=== PATIENT | female | born 1985 | race Caucasian/White ===

== ENCOUNTER 2021-10-19 08:07 | Outpatient (REF) | payer OTHER, SELFPAY ==
[2021-10-19 11:54] LABS: Alanine Aminotransferase 88 U/L (0-31); Albumin Level 4.3 g/dL (3.5-5.0); Alkaline Phosphatase 74 U/L (39-117); Anion Gap 10 (12-20); Aspartate Amino Transferase 43 U/L (5-31); Bilirubin Total 0.5 mg/dL (0.0-1.0); Blood Urea Nitrogen 10 mg/dL (9-16); Calcium 9.4 mg/dL (8.4-10.2); Carbon Dioxide 29 mmol/L (22-29); Chloride 101 mmol/L (96-108); Cholesterol 209 mg/dL; Estimated Glomerular Filt Rate > 60; Glucose Fasting 110 mg/dL (60-99); HDL Cholesterol 53 mg/dL; LDL Cholesterol Calculated 133 mg/dl; Potassium 4.2 mmol/L (3.3-5.1); Sodium 136 mmol/L (135-145); Total Protein 6.9 g/dL (6.5-8.0); Triglycerides 115 mg/dL
[2021-10-19 12:09] LABS: TSH reflex Free T4 2.79 uIU/mL (0.32-4.0)
== END 2021-10-19 08:08 | disposition home or self-care (01) ==
LOC: HO.WFDLDS 08:07
PROVIDERS: Visit Provider Family Medicine
DX: Z00.00 Encounter for general adult medical examination without abnormal findings (principal)
CPT/HCPCS: 36415; 80053; 80061; 84443

== ENCOUNTER 2021-11-16 07:29 | Outpatient (REF) | payer OTHER, SELFPAY ==
[2021-11-16 10:50] LABS: Estimated Average Glucose 97 mg/dL
[2021-11-16 11:02] LABS: Alanine Aminotransferase 57 U/L (0-31); Albumin Level 4.2 g/dL (3.5-5.0); Alkaline Phosphatase 72 U/L (39-117); Anion Gap 12 (12-20); Aspartate Amino Transferase 31 U/L (5-31); Bilirubin Total 0.9 mg/dL (0.0-1.0); Blood Urea Nitrogen 14 mg/dL (9-16); Calcium 9.1 mg/dL (8.4-10.2); Carbon Dioxide 27 mmol/L (22-29); Chloride 102 mmol/L (96-108); Estimated Glomerular Filt Rate > 60; Glucose Random 102 mg/dL (60-115); Potassium 4.1 mmol/L (3.3-5.1); Sodium 137 mmol/L (135-145); Total Protein 6.7 g/dL (6.5-8.0)
== END 2021-11-16 07:30 | disposition home or self-care (01) ==
LOC: HO.WFDLDS 07:29
PROVIDERS: Visit Provider Family Medicine
DX: R74.8 Abnormal levels of other serum enzymes (principal); R73.01 Impaired fasting glucose
CPT/HCPCS: 36415; 80053; 83036

== ENCOUNTER 2024-02-06 10:19 | Outpatient (AMB) | payer OTHER, SELFPAY ==
[2024-02-06 10:38] VITALS: BP 140/73; PULSE 79; RESP 13; TEMP 36.4; O2SAT 100; BMI 34.1
--- NOTE | 2024-02-06 10:38 | A.OFFPC_ITS ---
Vital Signs 02/06/24 10:38 02/06/24 11:09 Height 5 ft 5 in Weight 205 lb BMI 34.1 BP 140/73 H 124/78 Blood Pressure Location Lt brachial Lt brachial Position Sitting Sitting Respiration 13 Pulse 79 Pulse Source Pulse Oximeter Temp 97.5 F Temp Source Temporal Artery Scan Pulse Oximetry (%) 100 Oxygen Delivery Method Room Air Intake Visit Reasons: ELEV BP Intake Note: Patient reports she is here for evaluation of hypertension post [id number] ago. Patient reports OB referred her to her PCP. Priot to having a baby, patient reports her blood pressure was not a concern. Patient reports she is having some trouble with hormone regulation post and she is currently taking for anxiety. Patient reports she is taking progesterone control. Budget Coordinator Required: No Accompanied by: Self / Same As Patient Allergies No Known Allergies Allergy (Verified 02/06/24 10:57) crystal light Allergy (Mild, Uncoded 02/06/24 10:42) Stomach Upset Medication List - Last Reconciled 02/06/24 by NORRIS Perry- aspirin (Adult Low Dose Aspirin) 81 mg PO DAILY norethindrone (contraceptive) 0.35 mg PO DAILY sertraline 25 mg PO DAILY Tobacco use date assessed: 02/06/24 Dental Screening Dental Screen Date: 02/06/24 Did you have a dental visit in the last 12 months?: Yes Did you have a dental problem in the last 6 months where you did not have access to dental care?: No Was dental information given to patient?: Patient has dentist HPI HPI Comments History of Present Illness Details 38-year-old female with IFG, elevated li artis enzymes, gestational htn (2023), gestation diabetes, anxiety Health Maintenance: Pap 01/2024 [facility] 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 Reports failed induction. During post check last week, SBP >150 Monitors BP at home. Log reviewed from 09/2023- January 2024. SBP was only recorded twice in the 140's otherwise well below 130. DBP normal. She wonders if she has white coat htn. On minipill. At end of first bleed . sertraline was added at 2 week PP. Cont to have anxiety sx. Trouble sleeping. Denies depression, SI/HI. Reports + albrecht w/ baby Not breast feeding. Has never been on blood pressure meds in the past. Will be going for glucose test soon d/t gestational DM. Denies chest pain. Had swelling in lower ext after c section. This quickly resolved. Denies vision changes, headaches. [facility] Medical History (Updated 02/06/24 @ 11:39 by Gilma Lugo, HEAD START TEACHER-) delivery delivered Right foot pain Mid back pain Plantar fasciitis Uterine fibroid Social History (Updated 02/06/24 @ 10:48 by Michelle Brown [facility]) Household Members: Spouse and Children Housing: House Are you a primary critical care educator to a significant other at home: No Do you presently have visiting nurse or other home services: No 75 years or older and lives alone: No Alcohol intake: current Patient Tobacco Use Status: Former Tobacco user e-Cigarette/Vaping Use: Never Used service: No Current occupational status: employed Current occupation: M[employer] Current occupational exposures/hazards: No Sexual orientation: Straight/Heterosexual Gender identity: Female Cognitive needs: No Hearing needs: No Vision needs: No Questionnaire PHQ-9 Over the last 2 weeks, how often have you been bothered by any of the following problems? 1. Little interest or pleasure in doing things: not at all 2. Feeling down, depressed, or hopeless: not at all 3. Trouble falling or staying asleep, or sleeping too much: not at all 4. Feeling tired or having little energy: several days () 5. Poor appetite or overeating: not at all 6. Feeling bad about yourself - or that you are a failure or have let yourself or your family down: not at all 7. Trouble concentrating on things, such as reading the newspaper or watching television: not at all 8. Moving or speaking so slowly that other people could have noticed. Or the opposite - being so fidgety or restless that you have been moving around a lot more than usual: not at all 9. Thoughts that you would be better off or of hurting yourself in some way: not at all Total score: 1 Depression Screening Interpretation: Negative Depression Screening Done: Yes 30228 - PHQ-9 Billing: Yes Source: Developed by Drs. Juan Carmoan, Hailee Dorado, Bassam Moya and colleagues, with an educational tiffanie from [employer]. Thrive Questionnaire Date Thrive assessed: 02/06/24 I am a: Patient What is your living situation today?: I have a steady place to live Within the past 12 months, did the food you bought not last and you didn't have the money to get more?: Never true Within the past 12 months, did you worry whether your food would run out before you got money to buy more?: Never true Do you have trouble paying for medicines?: No Do you have trouble getting transportation to medical appointments?: No Do you have trouble paying your heating and electricity bill?: No Do you have trouble taking care of your child, family member or friend?: No Do you have trouble with day-to-day activities such as bathing, preparing meals, shopping, managing finances, etc.?: No Are you currently unemployed and looking for a job?: No Are you interested in more education?: No Please select the resources that you would like help with: None Currently or been in a relationship where the following occur: no concerns reported THRIVE Score: 0 AUDIT C Alcohol Use Questionnaire (AUDIT-C) 1. How often do you have a drink containing alcohol?: Never 3. How often do you have six or more drinks on one occasion?: Never Total Score: 0 Score Reviewed/Action Taken: Yes ASTER-7 AMB Questionnaire ASTER-7 Date ASTER - 7 assessed: 02/06/24 Feeling nervous, anxious, or on edge: 3 = Nearly every day Not being able to stop or control worryin = Several days Worrying too much about different things: 1 = Several days Trouble relaxin = More than half the days Being so restless that it is hard to sit still: 0 = Not at all Becoming easily annoyed or irritable: 1 = Several days Feeling afraid as if something awful might happen: 0 = Not at all Total ASTER-7 score (0-4 normal; 5-9 mild; 10-14 moderate; 15-21 severe): 8 Source: Developed by Drs. Juan Carmona, Hailee Dorado, Bassam Moya and colleagues, with an educational tiffanie from [employer]. ASTER-7 Assessment Billing ASTER-7 Assessment Tool: ASTER-7 Assessment 89465 Review of Systems Const All systems reviewed & are unremarkable except as noted in HPI and below Physical exam (Primary Care) Vital Signs: Last Vital Signs Temp 97.5 F 02/06/24 10:38 Pulse 79 02/06/24 10:38 Resp 13 02/06/24 10:38 BP 140/73 H 02/06/24 10:38 Pulse Ox 100 02/06/24 10:38 Oxygen Delivery Method Room Air 02/06/24 10:38 BMI result Body Mass Index 34.1 BMI Assessment/Plan discussion: High BMI High, discussed plan: lifestyle Tobacco/Smoking Status: Tobacco use Status Tobacco use date assessed 02/06/24 02/06/24 10:50 Patient Tobacco Use Status Former Tobacco user 02/06/24 10:50 e-Cigarette/Vaping Use Never Used 02/06/24 10:50 PHQ-9: PHQ-9 Score PHQ-9: Total score 1 02/06/24 10:50 Depression Screening Interpretation: Negative Thrive Assessment: Date of Thrive Assessment Date Thrive assessed 02/06/24 02/06/24 10:50 Currently or been in a relationship where the following occur: no concerns reported Const Other: awake alert MMM RRR LS CTAB No edema BLE Mood and affect appropriate Assessment and Plan Assessment & Plan (1) Elevated liver enzymes: Comment: history of. 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 AST/ALT 12/2023 WNL Code(s): R74.8 - Abnormal levels of other serum enzymes (2) Elevated fasting glucose: Comment: with + gestation DM Check HgA1c Code(s): R73.01 - Impaired fasting glucose (3) Elevated blood pressure reading without diagnosis of hypertension: Comment: home log at goal, repeat BP at goal < 130/80 Monitor once per week No indication for meds at this time Code(s): R03.0 - Elevated blood-pressure reading, without diagnosis of hypertension (4) anxiety: Comment: on sertraline 25mg, cont to have sx Plan increase to 50mg QD, Start Prn hydroxyzine 25 mg po TID PRN Code(s): O99.345 - Other mental disorders complicating the puerperium; F41.8 - Other specified anxiety disorders Plan: This note is constructed using voice recognition software. While every effort has been made to ensure accuracy in break out worker, still errors may have been included Sometimes, these errors may affect the content or meaning of the given sentence . Total time spent caring for the patient today was 60 minutes. This includes time spent before the visit reviewing the chart, time spent during the visit, and time spent after the visit on documentation Orders: Orders Comprehensive Met. Panel Today R73.01 - Impaired fasting glucose, R74.8 - Abnormal levels of other serum enzymes LDL Cholesterol Direct Today R73.01 - Impaired fasting glucose, R74.8 - Abnormal levels of other serum enzymes Microalbumin, Random (w Creat) Today R73.01 - Impaired fasting glucose, R74.8 - Abnormal levels of other serum enzymes Vitamin D 1,25 dihydroxy Today R73.01 - Impaired fasting glucose, R74.8 - Abnormal levels of other serum enzymes Hemoglobin A1c Today R73.01 - Impaired fasting glucose, R74.8 - Abnormal levels of other serum enzymes TSH reflex Free T4 Today R73.01 - Impaired fasting glucose, R74.8 - Abnormal levels of other serum enzymes Medications: New sertraline 50 mg PO DAILY 90 tabs 0RF hydroxyzine HCl 25 mg PO TID PRN 30 tabs 0RF anxiety Patient Instructions: monitor BP once per week and log; Goal SBP <140 Take new meds as directed Ok to stop asa at 6 weeks PP RTO IN 6 WEEKS TO F/U ON MOOD AND HTN Coding Level of Care Code Est Pt Level 5 (91177) Diagnoses Elevated liver enzymes R74.8 Elevated fasting glucose R73.01 Elevated blood pressure reading without diagnosis of hypertension R03.0 anxiety O99.345; F41.8 Additional Codes ASTER-7 Assessment Billing - ASTER-7 Assessment Tool: ASTER-7 Assessment 84968 ([id number])
[2024-02-06 11:09] VITALS: BP 124/78
== END 2024-02-06 11:40 | disposition home or self-care (01) ==
PROVIDERS: PCP Family Medicine; Visit Provider Nurse Practitioner Family
DX: R74.8 Abnormal levels of other serum enzymes (principal); R73.01 Impaired fasting glucose; R03.0 Elevated blood-pressure reading, without diagnosis of hypertension; F41.8 Other specified anxiety disorders; O99.345 Other mental disorders complicating the puerperium
CPT/HCPCS: 99215; 99417

== ENCOUNTER 2024-02-09 08:44 | Outpatient (REF) | payer OTHER, SELFPAY ==
[2024-02-09 12:25] LABS: Estimated Average Glucose 103 mg/dL; Hemoglobin A1c % 5.2 % (<6.0)
[2024-02-09 12:54] LABS: Creatinine Urine 68.57 mg/dL; Microalbumin Urine < 5.0 mg/L
[2024-02-09 13:14] LABS: Alanine Aminotransferase 17 U/L (0-31); Albumin Level 4.1 g/dL (3.5-5.0); Alkaline Phosphatase 78 U/L (39-117); Anion Gap 11 (12-20); Aspartate Amino Transferase 18 U/L (5-31); Bilirubin Total 0.5 mg/dL (0.0-1.0); Blood Urea Nitrogen 10 mg/dL (9-16); Calcium 9.3 mg/dL (8.4-10.2); Carbon Dioxide 28 mmol/L (22-29); Chloride 102 mmol/L (96-108); Estimated Glomerular Filt Rate > 60; Glucose Random 91 mg/dL (60-115); Potassium 3.9 mmol/L (3.3-5.1); Sodium 137 mmol/L (135-145); Total Protein 6.6 g/dL (6.5-8.0)
[2024-02-09 13:34] LABS: TSH reflex Free T4 3.02 uIU/mL (0.32-4.0)
[2024-02-10 19:10] LABS: LDL Cholesterol Direct 133 mg/dL (<100)
[2024-02-20 16:33] LABS: VITAMIN D (1,25 OH) D3 17 pg/mL; Vit D (1,25-Dihydroxy) Total 17 pg/mL (18-72); Vitamin D (1,25 OH) D2 <8 pg/mL
== END 2024-02-09 08:45 | disposition home or self-care (01) ==
LOC: HO.WFDLDS 08:44
PROVIDERS: Visit Provider Nurse Practitioner Family
DX: R73.01 Impaired fasting glucose (principal); R74.8 Abnormal levels of other serum enzymes
CPT/HCPCS: 36415; 80053; 82043; 82570; 82652; 83036; 83721; 84443

== ENCOUNTER → 2024-07-07 10:13 | Outpatient (BNVA) | payer OTHER, SELFPAY | PROVIDERS: PCP Family Medicine; Visit Provider Family Medicine ==

== ENCOUNTER → 2024-07-07 10:13 | Outpatient (AMB) | payer OTHER, SELFPAY ==
--- NOTE | 2024-07-07 10:09 | A.OFFPC_ITS ---
Intake Visit Reasons: follow up labs Intake Note: lab review Allergies No Known Allergies Allergy (Verified 07/07/24 10:15) crystal light Allergy (Mild, Uncoded 02/06/24 10:42) Stomach Upset Tobacco use date assessed: 02/06/24 Dental Screening Dental Screen Date: 02/06/24 HPI follow up labs HPI Details 39 y/o [facility] Labs drawn 02/09/24. Reviewed labs with pt. LDL 133. Had concerns about elevated fasting glucose and gestational DM - A1c 5.2%. Has checked her blood pressure at home and notes it typically sits in the 130s systolic range. Has complaints of post anxiety. Had been prescribed sertraline 50mg, hydroxyzine 25mg. She notes she feels her medication regimen has not been working for her. Hdyroxyzine has been causing sleepiness which she states is not desirable due to the baby. [facility] Medical History (Updated 07/07/24 @ 11:02 by Ken Jensen MD) Right foot pain Mid back pain Plantar fasciitis Uterine fibroid Surgical History (Updated 02/06/24 @ 12:43 by Michelle Brown CMA) Status post delivery Social History (Updated 02/06/24 @ 10:48 by Michelle Brown CMA) Household Members: Spouse and Children Housing: House Are you a primary post acute care nurse to a significant other at home: No Do you presently have visiting nurse or other home services: No 75 years or older and lives alone: No Alcohol intake: current Patient Tobacco Use Status: Former Tobacco user e-Cigarette/Vaping Use: Never Used service: No Current occupational status: employed Current occupation: M[employer] Current occupational exposures/hazards: No Sexual orientation: Straight/Heterosexual Gender identity: Female Cognitive needs: No Hearing needs: No Vision needs: No Questionnaire Thrive Questionnaire Date Thrive assessed: 02/06/24 ASTER-7 AMB Questionnaire ASTER-7 Date ASTER - 7 assessed: 02/06/24 Source: Developed by Drs. Juan Carmona, Hailee Dorado, Bassam Moya and colleagues, with an educational tiffanie from [employer]. Review of Systems Const Denies chills, Denies fatigue, Denies fever(s), Denies headache(s) and Denies weakness ENT Denies dizziness and Denies headache(s) Card Denies dyspnea Resp Denies cough, Denies dyspnea, Denies wheezing and Denies other (shortness of breath) Musc Denies numbness and Denies tingling Neuro Denies dizziness, Denies headache(s), Denies numbness, Denies tingling and Denies weakness Psych Reports anxiety and Denies depression Endo Denies fatigue Aller/Immun Denies wheezing Physical exam (Primary Care) Tobacco/Smoking Status: Tobacco use Status Tobacco use date assessed 02/06/24 07/07/24 10:10 Patient Tobacco Use Status Former Tobacco user 07/07/24 10:10 e-Cigarette/Vaping Use Never Used 07/07/24 10:10 Thrive Assessment: Date of Thrive Assessment Date Thrive assessed 02/06/24 07/07/24 10:10 Telehealth Telehealth Telehealth Platform: Telephone Location of provider rendering services: practice address Location of patient: address on file Patient Identification confirmed using: Name, : Yes Telehealth method: voice only Patient verbally consented to treatment: Yes Patient verbally consented to billing insurance company: Yes Patient informed of any privacy concerns related to visit: Yes Minutes spent on Phone/Video with Pt.: 21 Assessment and Plan Assessment & Plan (1) Elevated fasting glucose: Comment: with + gestation DM Check HgA1c Code(s): R73.01 - Impaired fasting glucose Plan: Gestational?diabetes?and?patient?has?had?elevated?fasting?blood?sugars?in?the?[place] st. Will?recheck?fasting?blood?sugar?and?an?A1c Advised?a?diet?low?in?sugars?and?starches,?advised?exercise?and?weight?loss (2) Elevated blood pressure reading without diagnosis of hypertension: Code(s): R03.0 - Elevated blood-pressure reading, without diagnosis of hypertension Plan: Patient?checks?her?blood?pressures?at?home?and?they?are?in?prehypertensive?range Advised?exercise,?weight?loss?and?diet?low?in?salt/sodium Patient?has?significant?anxiety?and?this?may?also?be?raising?her ?blood?pressure.??Will?try?some?clonidine?as?she?did?not?notice?any?improvements ?with?sertraline?or?hydroxyzine. See?below (3) Elevated LDL cholesterol level: Code(s): E78.00 - Pure hypercholesterolemia, unspecified Plan: Check?labs (4) Vitamin D deficiency: Comment: 02/2024 start vitamin d3 2000 IU QD Code(s): E55.9 - Vitamin D deficiency, unspecified Plan: Check?labs (5) anxiety: Code(s): O99.345 - Other mental disorders complicating the puerperium; F41.8 - Other specified anxiety disorders Plan: As?above,?patient?notes?increased?stress?after?delivery?of?her?baby She?has?higher?anxiety?and?has?tri ed?sertraline?which?did?not?help?much?and?hydroxyzine?which?caused?sleepiness?th at?was?not?desirable?considering?she?has?take?care?of?her?baby. She?is?not? Will?try?clonidine?which?may?he lp?with?anxiety/stress?and?may?also?help?with?her?blood?pressure. (6) Wrist pain: Code(s): M25.539 - Pain in unspecified wrist Plan: Patient?has?complaint?of?wrist?pain.??She?is?wearing?a?brace Advised?she?can?use?the?brace?when?doing?heavy?manual?dexterity?or?lifting?tasks . Otherwise?should?take?this?off. Ice/heat?and?can?use?a?topical?NSAID?like?Aspercreme?as?she?does?not?want?to?silvina e?oral?medications?for?this. Will?evaluate?further?in?the?office?at?her?upcoming?appointment Orders: Orders Lipid Panel Today Z00.00 - Encounter for general adult medical examination without abnormal findings TSH reflex Free T4 Today Z00.00 - Encounter for general adult medical examination without abnormal findings UA and rflx microscopic Today Z00.00 - Encounter for general adult medical examination without abnormal findings Vitamin D 25-OH Total Today E55.9 - Vitamin D deficiency, unspecified, R73.01 - Impaired fasting glucose Comprehensive Bonnie. Panel Fast Today Z00.00 - Encounter for general adult medical examination without abnormal findings Complete Blood Count Auto Diff Today Z00.00 - Encounter for general adult medical examination without abnormal findings Microalbumin, Random (w Creat) Today I10 - Essential (primary) hypertension Medications: New clonidine HCl 0.1 mg PO BID 30 days PRN 60 tabs 0RF anxiety Discontinued sertraline Discontinued Reason: Doctor's Order 50 mg PO DAILY 90 tabs 0RF Coding Level of Care Code Tele Est Pt Level 3 (20304) Diagnoses Elevated fasting glucose R73.01 Elevated blood pressure reading without diagnosis of hypertension R03.0 Elevated LDL cholesterol level E78.00 Vitamin D deficiency E55.9 anxiety O99.345; F41.8 Wrist pain M25.539
== END ==
LOC: HO.HMCFM 10:13
PROVIDERS: PCP Family Medicine; Visit Provider Family Medicine
DX: R73.01 Impaired fasting glucose (principal); R03.0 Elevated blood-pressure reading, without diagnosis of hypertension; E78.00 Pure hypercholesterolemia, unspecified; E55.9 Vitamin D deficiency, unspecified; O99.345 Other mental disorders complicating the puerperium; F41.8 Other specified anxiety disorders